=== PATIENT | female | born 2005 | race Caucasian/White ===

== ENCOUNTER 2025-01-30 01:55 | Emergency (ER) | payer OTHER ==
[2025-01-30 02:42] LABS: Pregnancy Test - Urine (BHCG) Negative (Negative); Pregu Control Background? CLEAR/WHITE (CLR/WHITE); Pregu Control Bar Appear? YES (CONTROL BAR)
[2025-01-30 02:45] LABS: Bacteria/HPF None Seen HPF (None Seen); CAUTI Indications for Culture Pelvic or flank pain; Glucose, Urine (Dipstick) Normal (Negative); Leukocyte Negative Leu/uL (Negative); Protein, Urine (Dipstick) Negative (Neg-Trace); RBC/HPF 0-3 HPF (0-3); Specific Gravity, Urine 1.013 (1.002-1.036); WBC/HPF 0-3 HPF (0-3)
[2025-01-30 02:47] LABS: Urine Culture Reflex No No
[2025-01-30] MEDS ORDERED: Ketorolac Tromethamine 30 MG (1 mL) VIAL ONE (03:53)
[2025-01-30] MEDS ORDERED: Acetaminophen 500 MG TAB ONE (03:55)
== END 2025-01-30 06:25 | disposition home or self-care (01) ==
LOC: ERS 01:55
DX: N80.121 Deep endometriosis of right ovary (principal); F17.290 Nicotine dependence, other tobacco product, uncomplicated
CPT/HCPCS: 76856; 81001; 81025; 96372; J1885; Q0162